=== PATIENT | male | born 1950 | race Two or more races ===

== ENCOUNTER 2018-09-20 19:28 | Emergency (ER) | payer SELFPAY ==
[2018-09-20 19:38] VITALS: RESP 16; TEMP 97.8; O2SAT 97
--- NOTE | 2018-09-20 20:08 | ED PDOC ---
HPI: Eye Injury/Pain Time Seen by Provider: 09/20/18 19:42 Chief Complaint (Nursing): Eye Problem History Per: Patient, Family History/Exam Limitations: no limitations Onset/Duration Of Symptoms: Mins Current Symptoms Are (Timing): Still Present Pain Scale Rating Of: 0 Quality: denies: Sharp, Dull, Burning Wears Contact Lens?: No Associated Symptoms: denies: Pain, Decreased Vision, Swelling, FB Sensation, Itching, Discharge From Eye Additional Complaint(s): Hx of HTN and recent dacryocystorhinostomy for clogged tear duct presenting with protrusion of the tubing after sneezing. States he was due to have it removed this weekend. Denies any loss of vision, pain, or any other symptoms. No foreign body sensation. Patient is due to have tubing removed in [place] the end of this week. Past Medical History Reviewed: Historical Data, Nursing Documentation, Vital Signs Vital Signs: Last Vital Signs Temp 97.8 F 09/20/18 19:35 Pulse 77 09/20/18 19:35 Resp 16 09/20/18 19:35 BP 178/109 H 09/20/18 19:35 Pulse Ox 97 09/20/18 19:35 - Medical History PMH: HTN - Family History Family History: States: Unknown Family Hx - Allergies Allergies/Adverse Reactions: Allergies Allergy/AdvReac Type Severity Reaction Status Date / Time Sulfa (Sulfonamide Allergy RASH Verified 09/20/18 19:35 Antibiotics) Review of Systems ROS Statement: Except As Marked, All Systems Reviewed And Found Negative ENT: Negative for: Ear Pain, Ear Discharge Physical Exam - Reviewed Nursing Documentation Reviewed: Yes Vital Signs Reviewed: Yes - Physical Exam Appears: Positive for: Well, Non-toxic, No Acute Distress Head Exam: Positive for: ATRAUMATIC, NORMAL INSPECTION, NORMOCEPHALIC Eye Exam: Positive for: EOMI, PERRL, Other (Plastic tubing protruding from lacrimal ducts) Cardiovascular/Chest: Positive for: Regular Rate, Rhythm Respiratory: Positive for: Normal Breath Sounds Neurologic/Psych: Positive for: Alert, labor and employment paralegal II-XII, Oriented. Negative for: Motor/Sensory Deficits - ECG O2 Sat by Pulse Oximetry: 97 Pulse Ox Interpretation: Normal Medical Decision Making Medical Decision Making: Patient presenting with protruding tubing from lacrimal duct after sneezing --No eye pain, no vision changes --Discussed case with Dr. Rosen who recommended ABx in eye and patching, states he would see the patient at 9AM the next day --Placed polytrim in patient's eye and patched --Strongly advised patient followup tomorrow with optho Disposition - Clinical Impression Clinical Impression: Eye abnormality - Disposition Referrals: Jerome Rosen MD [Staff Provider] - Disposition: Routine/Home Disposition Time: 20:30 Condition: STABLE Additional Instructions: Please followup with Dr. Rosen tomorrow at 9A.M. Forms: [facility] (Malay)
[2018-09-21 04:06] VITALS: BP 163/72; PULSE 68
== END 2018-09-20 21:20 | disposition home or self-care (01) ==
LOC: H.ER 19:28
DX: H57.9 Unspecified disorder of eye and adnexa (principal); I10 Essential (primary) hypertension